=== PATIENT | male | born 1970 | race Caucasian/White ===

== ENCOUNTER 2018-04-03 00:03 | Emergency (ER) | payer BC, OTHER ==
--- NOTE | 2018-04-03 00:12 | PDOC ---
History of Present Illness - General Chief Complaint: Injury Stated Complaint: LH INJURY Time Seen by Provider: 04/03/18 00:06 History Source: Patient Exam Limitations: No Limitations - History of Present Illness Initial Comments: 04/03/18 00:19 This is a 47-year-old male who comes in complaining of left hand pain post being hit in the hand by a hockey puck. Patient is complaining of pain in his hand over the fifth metacarpal. Patient otherwise denies any injuries. PAST MEDICAL HISTORY: no significant history PAST SURGICAL HISTORY: no significant history FAMILY HISTORY: no pertinant history SOCIAL HISTORY: Pt lives with family and is employed. MEDICATIONS: reviewed ALLERGIES: As per nursing notes ROS General: No fevers or chills, no weakness, no weight loss HEENT: No change in vision. No sore throat,. No ear pain CardioVascular: No chest pain or shortness of breath Respiratory:No cough, or wheezing. Gastrointestinal: no nausea, vomiting, diarrhea or constipation, No rectal bleeding Genitourinary: No dysuria, hematuria, or frequency Musculoskeletal: . No joint pain or swelling, left hand pain Neurologic: No headache, vertigo, dizziness or loss of consciousness Psychiatric: nor depression Skin: No rashes or easy bruising Endocrine: no increased thirst or abnormal weight change Allergic: no skin or latex allergy All other systems reviewed and normal GENERAL: The patient is awake, alert, and fully oriented, in no acute distress. HEAD: Normal with no signs of trauma. EARS: Bilateral ears are normal with normal external canal. and tympanic membranes. EYES: Pupils equal, round and reactive to light, extraocular movements intact, sclera anicteric, conjunctiva clear. EXTREMITIES: Normal range of motion, no edema. Left hand there is swelling over the fifth metacarpal with tenderness on palpation and some ecchymosis. There is decreased range of motion secondary to pain and discomfort. Neurovascular distal is intact. NEUROLOGICAL: Normal speech, normal gait. grossly intact PSYCH: Normal mood, normal affect. SKIN: Warm, Dry, normal turgor, no rashes or lesions noted. X-ray shows fracture of the fifth metacarpal there is some mild displacement Procedure note OCL splint A ulnar gutter splint was applied neurovascular post-splint application was intact Assessment and plan: This is a 47-year-old male with a fifth metacarpal fracture. Patient put in a splint and referred to orthopedist for follow-up. Past History - Past Medical History Allergies/Adverse Reactions: Allergies Allergy/AdvReac Type Severity Reaction Status Date / Time No Known Allergies Allergy Verified 04/27/13 20:52 Home Medications: Ambulatory Orders No Home Medications 0 dose .ROUTE UTDICT 04/27/13 - Immunization History Immunization Up to Date: Yes - Suicide/Smoking/Psychosocial Hx Smoking History: Never smoked Have you smoked in the past 12 months: No Number of Cigarettes Smoked Daily: 0 Hx Alcohol Use: No Substance Use Type: None *DC/Admit/Observation/Transfer Diagnosis at time of Disposition: Fracture of fifth metacarpal bone of left hand Qualifiers: Encounter type: initial encounter Fracture type: closed Metacarpal location: shaft Fracture alignment: displaced Qualified Code(s): S62.327A - Displaced fracture of shaft of fifth metacarpal bone, left hand, initial encounter for closed fracture - Discharge Dispostion Disposition: HOME Condition at time of disposition: Stable Decision to Admit order: No - Referrals Referrals: Sabas Powell MD [Primary Care Provider] - - Patient Instructions Additional Instructions: Leave the splint in place until you follow-up with or thrill Call or so Dr. Herring at [phone] in the morning for an appointment. Tylenol or Motrin as needed for pain Return to the emergency department immediately with ANY new, persistent or worsening symptoms. Continue any medications as previously prescribed by your physician. You should follow up with your primary doctor as soon as possible regarding today's emergency department visit. . Please make sure your doctor reviews the results of your emergency evaluation. Thank you for coming to the Emergency Department today for your care. It was a pleasure to see you today. Please note that your evaluation is INCOMPLETE until you follow-up with your doctor. - Post Discharge Activity
[2018-04-03 00:27] VITALS: BP 153/115; PULSE 61; TEMP 98.6; BMI 31.5
== END 2018-04-03 00:59 | disposition home or self-care (01) ==
LOC: FER 00:03
PROC: 2W3KX1Z Immobilization of Left Finger using Splint (ICD-10-PCS; principal; 2018-04-03)
DX: S62.327A Displaced fracture of shaft of fifth metacarpal bone, left hand, initial encounter for closed fracture (principal); W21.220A Struck by ice hockey puck, initial encounter; Y93.22 Activity, ice hockey; Y92.330 Ice skating rink (indoor) (outdoor) as the place of occurrence of the external cause
CPT/HCPCS: 73130-TC-LR-FY; 99282-25